=== PATIENT | male | born 1985 | race Caucasian/White ===

== ENCOUNTER 2018-09-28 09:34 | Day surgery (SDC) | payer BC ==
[~2018-09-28 09:34] MED LIST: Bacitracin Oint 28.35 GM Tube ONE; Lidocaine 1% with EPINEPHrine 1:100,000 50 ML MDV ONE; Lidocaine/Prilocaine 2.5-2.5% Crm 5 GM Tube ONE; Mineral Oil 10 ML Bottle ONE
[2018-09-28] MEDS ORDERED: Propofol 200 MG/20 ML SDV ONE ×4 (09:48→12:02)
[2018-09-28] MEDS ORDERED: fentaNYL 100 MCG/2 ML SDV ONE (09:48)
[2018-09-28] MEDS ORDERED: Midazolam 1 MG/ML 2 ML SDV ONE (09:48)
[2018-09-28] MEDS ORDERED: Sodium Chloride 0.9% 1,000 ML IV SCH (10:45)
[2018-09-28] MEDS ORDERED: ceFAZolin 2 GM in Premix Bag 1 BAG IV ONE (11:00)
[2018-09-28] MEDS ORDERED: Acetaminophen/HYDROcodone 325-5 MG Tab PO ONE (13:10)
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
== END 2018-09-28 13:50 | disposition home or self-care (01) ==
LOC: JP.SDS 09:34
PROVIDERS: ATTEND Surgery
DX: T25.022A Burn of unspecified degree of left foot, initial encounter (principal); F17.200 Nicotine dependence, unspecified, uncomplicated; Z88.2 Allergy status to sulfonamides; Z88.0 Allergy status to penicillin
CPT/HCPCS: 15004; 15120; A9270; J0690; J2250; J2704; J3010; J7030